=== PATIENT | female | born 1975 | race Caucasian/White ===

== ENCOUNTER 2020-03-18 13:12 | Outpatient (CLI) | payer BC, SELFPAY ==
--- NOTE | ~2020-03-18 | US_ITS ---
EXAMINATION: US venous doppler LE RT DATE: 03/18/2020 13:43 INDICATION: Right calf pain. TECHNIQUE: Grayscale ultrasound images without and with compression and Doppler ultrasound images of the right lower extremity veins were obtained. COMPARISON: None. FINDINGS: The visualized portions of right common femoral vein, profunda (deep) femoral vein, femoral vein, pop liteal vein, peroneal veins, posterior tibial veins, and greater saphenous vein outflow are patent. IMPRESSION: 1. No deep venous thrombosis. Reviewed, dictated and finalized at location A.
--- NOTE | ~2020-03-18 | XR_ITS ---
EXAMINATION: XR knee RT min 4V DATE: 03/18/2020 14:12 INDICATION: Right knee acute pain. TECHNIQUE: 4 views of right knee were obtained. COMPARISON: None. FINDINGS: There is lateral subluxation of patella. No fracture. There is mild osteoarthritis of media l and lateral compartments and moderate osteoarthritis of patellofemoral compartment. No knee joint e ffusion. IMPRESSION: 1. Moderate right knee osteoarthritis. Reviewed, dictated and finalized at location A.
== END 2020-03-18 13:13 ==
DX: M79.661 Pain in right lower leg (principal); M25.561 Pain in right knee; M17.11 Unilateral primary osteoarthritis, right knee
CPT/HCPCS: 73564; 93971